=== PATIENT | female | born 1955 | race Caucasian/White ===

== ENCOUNTER → 2017-09-20 09:31 | Outpatient (CLI) | payer MEDICARE, MEDICAID, SELFPAY ==
--- NOTE | 2017-09-20 09:41 | MM_ITS ---
. MM Dig screening mamm BI w/CAD CAD Screening ORDERING PHYSICIAN : [facility] PATIENT AGE: 62 years GENDER: Female INDICATION: No hormones no new complaints previous needle biopsy left breast Family history. Mother with breast cancer. TECHNIQUE: Standard CC and MLO images were obtained. R2 CAD reviewed. COMPARISON: Previous mammograms: May 2016, February 2011, January 2010 also November 2008 outside studies from [facility] FINDINGS: Moderate breast density bilaterally. No significant new findings RIGHT BREAST: no new areas of concern.:Stable glandular density medial retroareolar region LEFT BREAST: Stable Asymmetric area of breast tissue upper-outer quadrant left breast is again noted and similar to previous studies. Dating back to 2009 Metallic marker at the left superior retroareolar region reflecting previous percutaneous biopsy IMPRESSION: ...... Stable mammogram with no new areas concern. Stable mild/moderate asymmetry with Moderate dense breast for age. BI-RADS Category: 2 Benign Finding(s) RECOMMENDED FOLLOW-UP: 1YR - 1 YEAR FOLLOW-UP (A letter has been sent to the patient regarding results of the study.)
== END ==
PROVIDERS: Family Provider Family Medicine; PCP Family Medicine; Visit Provider Internal Medicine Adolescent Medicine
DX: Z12.31 Encounter for screening mammogram for malignant neoplasm of breast (principal)
CPT/HCPCS: 77067

== ENCOUNTER 2022-11-16 09:00 | Outpatient (RCR) | payer MEDICARE, MEDICAID, SELFPAY | END 2022-11-16 09:05 | disposition home or self-care (01) | LOC: PT 09:00 | PROVIDERS: PCP Family Medicine; Visit Provider Clinical Nurse Specialist Family Health | DX: G44.86 Cervicogenic headache (principal); M54.2 Cervicalgia; M54.12 Radiculopathy, cervical region | CPT/HCPCS: 97010; 97014; 97035; 97110; 97140; 97163; G0283 ==